=== PATIENT | male | born 1960 | race Hispanic/Latino ===

== ENCOUNTER 2024-05-01 00:14 | Emergency (ER) | payer OTHER ==
[2024-05-01] MEDS ORDERED: DERMABOND SKIN ADHESIVE TOP ONE (00:45)
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
[2024-05-01] MEDS ORDERED: IBUPROFEN 400 MG TAB ONE (03:34)
[2024-05-01] MEDS ORDERED: HYDROCODONE/APAP 5/325 MG TAB ONE (03:35)
[2024-05-01 04:16] VITALS: TEMP 97.6; O2SAT 100
[2024-05-01 04:19] VITALS: BP 119/81
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
--- NOTE | 2024-05-01 05:55 | RAD REPORT ---
CLINICAL HISTORY: Pain. COMPARISON: None. TECHNIQUE: XR FOREARM RIGHT 05/01/2024 12:38 AM RED LEAD BURNER FINDINGS: There is no fracture. Joint spaces are preserved. Soft tissues are unremarkable. IMPRESSION: No acute osseous findings. Electronically signed by: Hema Steen MD 05/01/2024 02:56 AM RED LEAD BURNER Due to temporary technical issues with the PACS/[employer] reporting system, reports are being garcia d by the in-house radiologist without review as a courtesy to ensure prompt reporting the interpreting radiologist is fully responsible for the content of the report. Transcribed Date/Time: 05/01/2024 5:55 AM
--- NOTE | 2024-05-01 05:55 | RAD REPORT ---
CLINICAL HISTORY: Pain. COMPARISON: None. TECHNIQUE: XR HUMERUS RIGHT 05/01/2024 12:38 AM DETECTIVE CHIEF FINDINGS: There is no fracture. Joint spaces are preserved. Soft tissues are unremarkable. IMPRESSION: No acute osseous findings. Electronically signed by: Hema Steen MD 05/01/2024 02:55 AM DETECTIVE CHIEF RP Due to temporary technical issues with the [email or web address] reporting system, reports are being garcia d by the in-house radiologist without review as a courtesy to ensure prompt reporting the interpreting radiologist is fully responsible for the content of the report. Transcribed Date/Time: 05/01/2024 5:55 AM
--- NOTE | 2024-05-01 05:56 | RAD REPORT ---
CLINICAL HISTORY: Pain. COMPARISON: None. TECHNIQUE: XR FEMUR 2 VIEWS LEFT 05/01/2024 12:38 AM LANCE CREWMEMBER FINDINGS: There is no fracture. Joint spaces are preserved. Soft tissues are unremarkable. IMPRESSION: No acute osseous findings. Electronically signed by: Hema Steen MD 05/01/2024 02:55 AM LANCE CREWMEMBER RP Due to temporary technical issues with the PACS/[employer] reporting system, reports are being garcia d by the in-house radiologist without review as a courtesy to ensure prompt reporting the interpreting radiologist is fully responsible for the content of the report. Transcribed Date/Time: 05/01/2024 5:55 AM
== END 2024-05-01 03:53 | disposition home or self-care (01) ==
LOC: ER 00:14
DX: S01.81XA Laceration without foreign body of other part of head, initial encounter (principal); S80.12XA Contusion of left lower leg, initial encounter; S50.11XA Contusion of right forearm, initial encounter; Y04.8XXA Assault by other bodily force, initial encounter
CPT/HCPCS: 12051; 70450; 70486; 71250; 72125; 74176; 76377; 99283